=== PATIENT | female | born 1970 | race Hispanic/Latino ===

== ENCOUNTER 2021-01-02 10:19 | Outpatient (CLI) | payer BC | END 2021-01-02 10:20 | disposition home or self-care (01) | LOC: CSHMAMMO 10:19 | PROVIDERS: ATTEND Physician Assistant | DX: Z12.31 Encounter for screening mammogram for malignant neoplasm of breast (principal); Z80.3 Family history of malignant neoplasm of breast | CPT/HCPCS: 77063; 77067 ==